=== PATIENT | female | born 1950 | race Caucasian/White ===

== ENCOUNTER 2019-01-18 09:59 | Inpatient (IN) | payer OTHER ==
[2019-01-18 10:23] LABS: ADD MAN DIFF? NO
[2019-01-18 10:24] LABS: WHITE BLOOD COUNT 11.7 10^3/ul (4.8-10.8)
[2019-01-18 10:24] LABS: BASOPHILS % 0.3 % (0.0-2.0); EOSINOPHILS % 0.2 % (0.0-7.0); HEMATOCRIT 36.1 % (37.0-47.0); HEMOGLOBIN 11.6 g/dl (12.0-16.0); LYMPHOCYTES # 2.6 10^3/ul (0.8-2.9); LYMPHOCYTES % 22.5 % (15.0-51.0); MEAN CORPUSCULAR HEMOGLOBIN 29.4 pg (29.0-33.0); MEAN CORPUSCULAR HGB CONC 32.1 g/dl (32.0-37.0); MEAN CORPUSCULAR VOLUME 91.6 fl (82.0-101.0); MEAN PLATELET VOLUME 9.9 fl (7.4-10.4); MONOCYTE # 0.9 10^3/ul (0.3-0.9); MONOCYTES % 7.8 % (0.0-11.0); NEUTROPHIL # 8.1 10^3/ul (1.6-7.5); NEUTROPHILS % 68.8 % (39.0-77.0); PLATELET COUNT 410 10^3/UL (140-415); RED BLOOD COUNT 3.94 10^6/ul (4.20-5.40)
[2019-01-18] MEDS: ONDANSETRON 4 MG INJ IV ×2 (10:24→16:34)
[2019-01-18] MEDS: SOD CHLORIDE 0.9% 1,000 ML IV ×3 (10:24→21:34)
[2019-01-18 10:43] LABS: ALANINE AMINOTRANSFERASE 18 IU/L (13-69); ALBUMIN/GLOBULIN RATIO 1.37; ALKALINE PHOSPHATASE 69 IU/L (42-121); ANION GAP 14 (5-13); ASPARTATE AMINO TRANSFERASE 20 IU/L (15-46); BILIRUBIN,INDIRECT 0.5 mg/dl (0-1.1); BILIRUBIN,TOTAL 0.5 mg/dl (0.2-1.3); BLOOD UREA NITROGEN 30 mg/dl (7-20); CALCIUM 9.1 mg/dl (8.4-10.2); CARBON DIOXIDE 20 mmol/L (21-31); CHLORIDE 109 mmol/L (97-110); Estimated GFR > 60 mL/min (>60); GLUCOSE 205 mg/dl (70-220); LIPASE 76 U/L (23-300); POTASSIUM 4.5 mmol/L (3.5-5.1); SODIUM 143 mmol/L (135-144); TOTAL PROTEIN 6.9 g/dl (6.1-8.1)
[2019-01-18 10:44] LABS: INR 0.97
[2019-01-18 10:54] LABS: TROPONIN-I < 0.012 ng/ml (0.000-0.120)
[2019-01-18] MEDS: PANTOPRAZOLE IV 80 MG in SOD CHLORIDE 0.9% 100 ML IVPB (11:08)
[2019-01-18] MEDS: PANTOPRAZOLE IV 80 MG in SOD CHLORIDE 0.9% 100 ML IV ×3 (11:50→22:57)
[2019-01-18] MEDS ORDERED: NACL 0.9% 3 ML SYG IV (12:00)
[2019-01-18] MEDS ORDERED: ACETAMINOPHEN 325 MG TAB PO (12:00)
[2019-01-18] MEDS ORDERED: morphine 2 MG INJ IV (12:00)
[2019-01-18] MEDS ORDERED: ONDANSETRON 4 MG INJ IV (12:00)
[2019-01-18] MEDS: BISACODYL (EC) 5 MG TAB PO ×2 (15:30→20:03)
[2019-01-18] MEDS: MAGNESIUM CITRATE 300 ML BTL PO (16:12)
[2019-01-18] MEDS: POLYETHYLENE GLYCOL 3350 119 GM POWDER PO ×2 (16:12→17:00)
[2019-01-18 16:49] LABS: OCCULT BLOOD STOOL POSITIVE (NEGATIVE)
[2019-01-18 18:14] LABS: HEMATOCRIT 30.1 % (37.0-47.0); HEMOGLOBIN 9.7 g/dl (12.0-16.0)
[2019-01-18] MEDS: METOCLOPRAMIDE 10 MG INJ IV (18:15)
[2019-01-18] MEDS ORDERED: METOCLOPRAMIDE 10 MG INJ IV (18:30)
[2019-01-19 01:01] LABS: HEMATOCRIT 27.8 % (37.0-47.0); HEMOGLOBIN 9.1 g/dl (12.0-16.0)
[2019-01-19] MEDS: SOD CHLORIDE 0.9% 1,000 ML IV ×4 (06:10→18:40)
[2019-01-19 06:21] LABS: ADD MAN DIFF? NO
[2019-01-19 06:43] LABS: BASOPHILS % 0.4 % (0.0-2.0); EOSINOPHILS # 0.1 10^3/ul (0.0-0.5); EOSINOPHILS % 0.7 % (0.0-7.0); HEMATOCRIT 26.3 % (37.0-47.0); HEMOGLOBIN 8.4 g/dl (12.0-16.0); LYMPHOCYTES # 1.9 10^3/ul (0.8-2.9); LYMPHOCYTES % 27.8 % (15.0-51.0); MEAN CORPUSCULAR HEMOGLOBIN 29.4 pg (29.0-33.0); MEAN CORPUSCULAR HGB CONC 31.9 g/dl (32.0-37.0); MEAN PLATELET VOLUME 10.2 fl (7.4-10.4); MONOCYTE # 0.7 10^3/ul (0.3-0.9); MONOCYTES % 9.5 % (0.0-11.0); NEUTROPHIL # 4.2 10^3/ul (1.6-7.5); NEUTROPHILS % 61.3 % (39.0-77.0); PLATELET COUNT 288 10^3/UL (140-415); RED BLOOD COUNT 2.86 10^6/ul (4.20-5.40); RED CELL DISTRIBUTION WIDTH 14.7 % (11.5-14.5)
[2019-01-19 06:43] LABS: WHITE BLOOD COUNT 6.9 10^3/ul (4.8-10.8)
[2019-01-19 06:53] LABS: ALANINE AMINOTRANSFERASE 25 IU/L (13-69); ALBUMIN/GLOBULIN RATIO 1.25; ALKALINE PHOSPHATASE 52 IU/L (42-121); ANION GAP 9 (5-13); ASPARTATE AMINO TRANSFERASE 16 IU/L (15-46); BILIRUBIN,INDIRECT 0.1 mg/dl (0-1.1); BILIRUBIN,TOTAL 0.1 mg/dl (0.2-1.3); BLOOD UREA NITROGEN 13 mg/dl (7-20); CALCIUM 8.5 mg/dl (8.4-10.2); CARBON DIOXIDE 22 mmol/L (21-31); CHLORIDE 113 mmol/L (97-110); CREATININE 0.57 mg/dl (0.44-1.00); Estimated GFR > 60 mL/min (>60); GLUCOSE 106 mg/dl (70-220); MAGNESIUM 2.1 mg/dl (1.7-2.5); POTASSIUM 3.9 mmol/L (3.5-5.1); SODIUM 144 mmol/L (135-144); TOTAL PROTEIN 5.4 g/dl (6.1-8.1)
[2019-01-19] MEDS: PANTOPRAZOLE IV 80 MG in SOD CHLORIDE 0.9% 100 ML IV (09:04)
[2019-01-19] MEDS ORDERED: ONDANSETRON 4 MG INJ IV (14:00)
[2019-01-19] MEDS ORDERED: ALBUTEROL 0.083% (NEB) 2.5 MG/3 ML AMP HHN (14:00)
[2019-01-19] MEDS ORDERED: FENTAnyl 50 MCG/ML VIAL IV (14:00)
[2019-01-19] MEDS ORDERED: LABETALOL HCL 20MG INJ IV (14:00)
[2019-01-19] MEDS ORDERED: ACETAMINOPHEN 500 MG TAB PO (14:00)
[2019-01-19] MEDS ORDERED: DIPHENHYDRAMINE 50 MG INJ IV (14:00)
[2019-01-19] MEDS: LIDOCAINE 2% (SDV) 5 ML INJ (15:34)
[2019-01-19] MEDS: PROPOFOL 40 ML (15:34)
[2019-01-19] MEDS: PANTOPRAZOLE (EC) 40 MG TAB PO (18:00)
[2019-01-19] MEDS: ACETAMINOPHEN 325 MG TAB PO (18:40)
[2019-01-19] MEDS: LORAZEPAM 1 MG TAB PO (20:42)
[2019-01-19] MEDS: ATORVASTATIN 80 MG TAB PO (20:42)
[2019-01-19] MEDS: METOPROLOL 50 MG TAB PO (20:43)
[2019-01-20] MEDS: PANTOPRAZOLE (EC) 40 MG TAB PO ×2 (05:07→18:00)
[2019-01-20] MEDS: SOD CHLORIDE 0.9% 1,000 ML IV (05:23)
[2019-01-20] MEDS: ESCITALOPRAM 10 MG TAB PO (09:24)
[2019-01-20] MEDS: METOPROLOL 50 MG TAB PO ×2 (09:25→21:28)
[2019-01-20] MEDS: POLYETHYLENE GLYCOL 17 GM PACKET PO (09:25)
[2019-01-20] MEDS: LISINOPRIL 20 MG TAB PO (09:25)
[2019-01-20 10:07] LABS: ADD MAN DIFF? NO
[2019-01-20 10:10] LABS: WHITE BLOOD COUNT 5.6 10^3/ul (4.8-10.8)
[2019-01-20 10:10] LABS: BASOPHILS % 0.4 % (0.0-2.0); EOSINOPHILS # 0.1 10^3/ul (0.0-0.5); EOSINOPHILS % 1.6 % (0.0-7.0); HEMOGLOBIN 7.8 g/dl (12.0-16.0); LYMPHOCYTES # 1.5 10^3/ul (0.8-2.9); LYMPHOCYTES % 26.1 % (15.0-51.0); MEAN CORPUSCULAR HEMOGLOBIN 30.1 pg (29.0-33.0); MEAN CORPUSCULAR HGB CONC 32.5 g/dl (32.0-37.0); MEAN CORPUSCULAR VOLUME 92.7 fl (82.0-101.0); MEAN PLATELET VOLUME 9.9 fl (7.4-10.4); MONOCYTE # 0.5 10^3/ul (0.3-0.9); MONOCYTES % 9.5 % (0.0-11.0); NEUTROPHIL # 3.4 10^3/ul (1.6-7.5); PLATELET COUNT 226 10^3/UL (140-415); RED BLOOD COUNT 2.59 10^6/ul (4.20-5.40); RED CELL DISTRIBUTION WIDTH 14.6 % (11.5-14.5)
[2019-01-20] MEDS: ASPIRIN 81 MG TAB PO (12:00)
[2019-01-20 13:21] LABS: HEMATOCRIT 23.3 % (37.0-47.0); HEMOGLOBIN 7.6 g/dl (12.0-16.0)
[2019-01-20 18:09] LABS: ADD UMIC YES; UR ASCORBIC ACID NEGATIVE (NEGATIVE); UR BACTERIA FEW /HPF (NONE SEEN); UR BILIRUBIN (Dip) NEGATIVE (NEGATIVE); UR BLOOD (Dip) 2+ mg/dL (NEGATIVE); UR CLARITY CLEAR (CLEAR); UR COLOR YELLOW (YELLOW); UR GLUCOSE (Dip) NEGATIVE (NEGATIVE); UR KETONES (Dip) NEGATIVE (NEGATIVE); UR LEUKOCYTE ESTERASE (Dip) 3+ Leu/ul (NEGATIVE); UR MUCUS FEW /HPF (NONE SEEN); UR NITRITE (Dip) NEGATIVE (NEGATIVE); UR RBC 1 /HPF (0-5); UR SPECIFIC GRAVITY (Dip) 1.004 (1.003-1.030); UR SQUAMOUS EPITHELIAL CELL FEW /HPF (FEW); UR TOTAL PROTEIN (Dip) NEGATIVE (NEGATIVE); UR UROBILINOGEN (Dip) NEGATIVE (NEGATIVE); UR WBC 3 /HPF (0-5)
[2019-01-20] MEDS: ATORVASTATIN 80 MG TAB PO (21:24)
[2019-01-20] MEDS: LORAZEPAM 1 MG TAB PO (23:14)
[2019-01-20] MEDS ORDERED: morphine LIQ (10 MG/5 ML) CUP PO (23:45)
[2019-01-21] MEDS: PANTOPRAZOLE (EC) 40 MG TAB PO (05:26)
[2019-01-21 05:39] LABS: ADD MAN DIFF? NO
[2019-01-21 05:42] LABS: WHITE BLOOD COUNT 4.2 10^3/ul (4.8-10.8)
[2019-01-21 05:42] LABS: BASOPHILS % 0.7 % (0.0-2.0); EOSINOPHILS # 0.1 10^3/ul (0.0-0.5); EOSINOPHILS % 2.8 % (0.0-7.0); HEMATOCRIT 24.2 % (37.0-47.0); HEMOGLOBIN 7.8 g/dl (12.0-16.0); LYMPHOCYTES # 1.7 10^3/ul (0.8-2.9); MEAN CORPUSCULAR HEMOGLOBIN 29.2 pg (29.0-33.0); MEAN CORPUSCULAR HGB CONC 32.2 g/dl (32.0-37.0); MEAN CORPUSCULAR VOLUME 90.6 fl (82.0-101.0); MEAN PLATELET VOLUME 10.1 fl (7.4-10.4); MONOCYTE # 0.5 10^3/ul (0.3-0.9); MONOCYTES % 11.3 % (0.0-11.0); NEUTROPHIL # 1.9 10^3/ul (1.6-7.5); PLATELET COUNT 235 10^3/UL (140-415); RED BLOOD COUNT 2.67 10^6/ul (4.20-5.40); RED CELL DISTRIBUTION WIDTH 14.5 % (11.5-14.5)
[2019-01-21 06:05] LABS: ALBUMIN 2.8 g/dl (3.3-4.9); ANION GAP 5 (5-13); BLOOD UREA NITROGEN 4 mg/dl (7-20); CALCIUM 8.5 mg/dl (8.4-10.2); CARBON DIOXIDE 27 mmol/L (21-31); CHLORIDE 110 mmol/L (97-110); CREATININE 0.45 mg/dl (0.44-1.00); GLUCOSE 88 mg/dl (70-220); MAGNESIUM 1.8 mg/dl (1.7-2.5); PHOSPHORUS 4.6 mg/dl (2.5-4.9); POTASSIUM 3.5 mmol/L (3.5-5.1); SODIUM 142 mmol/L (135-144)
[2019-01-21] MEDS: POLYETHYLENE GLYCOL 17 GM PACKET PO (09:00)
[2019-01-21 10:52] LABS: IRON 28 ug/dl (35-150)
[2019-01-21 11:01] LABS: % IRON SATURATION 8 % SAT (22-52); TOTAL IRON BINDING CAPACITY 366 ug/dl (241-421)
[2019-01-21] MEDS: BARIUM SULFATE 0.1% 450 ML BTL (VOLUMEN) PO (11:45)
[2019-01-21] MEDS: GLUCAGON 1 MG INJ (11:50)
[2019-01-21] MEDS: SOD CHLORIDE 0.9% 100 ML (12:30)
[2019-01-21] MEDS: IOHEXOL 100 ML (12:35)
[2019-01-21] MEDS: IOHEXOL 350MG/ML 50 ML BTL (12:35)
[2019-01-21] MEDS: ESCITALOPRAM 10 MG TAB PO (13:09)
[2019-01-21] MEDS: ASPIRIN 81 MG TAB PO (13:09)
[2019-01-21] MEDS: METOPROLOL 50 MG TAB PO (13:11)
[2019-01-21] MEDS: LISINOPRIL 20 MG TAB PO (13:11)
[2019-01-21 14:02] LABS: HEMOGLOBIN 9.5 g/dl (12.0-16.0)
[2019-01-21] MEDS: LIDOCAINE 1% (MDV) 20 ML INJ (14:55)
== END 2019-01-21 17:00 | disposition home or self-care (01) | DRG 378 ==
LOC: E/R 09:59 → MS1 11:37
PROC: 0DB68ZX Excision of Stomach, Via Natural or Artificial Opening Endoscopic, Diagnostic (ICD-10-PCS; principal; 2019-01-19 13:15)
PROC: 0DJD8ZZ Inspection of Lower Intestinal Tract, Via Natural or Artificial Opening Endoscopic (ICD-10-PCS; 2019-01-19 13:15)
DX: K29.71 Gastritis, unspecified, with bleeding (principal); D62 Acute posthemorrhagic anemia; I25.10 Atherosclerotic heart disease of native coronary artery without angina pectoris; E78.5 Hyperlipidemia, unspecified; F32.9 Major depressive disorder, single episode, unspecified; I10 Essential (primary) hypertension; I25.2 Old myocardial infarction; F41.9 Anxiety disorder, unspecified; K44.9 Diaphragmatic hernia without obstruction or gangrene; K64.8 Other hemorrhoids; K57.90 Diverticulosis of intestine, part unspecified, without perforation or abscess without bleeding; Z95.5 Presence of coronary angioplasty implant and graft; Z85.3 Personal history of malignant neoplasm of breast
CPT/HCPCS: 36415; 74176; 74178; 80053; 80069; 81001; 82270; 83036; 83540; 83690; 83735; 84484; 85014; 85018; 85025; 85610; 85730; 86850; 86900; 86901; 88305; 88312; 93005; 96374; 96375; 99285-25